=== PATIENT | male | born 1960 | race Caucasian/White ===

== ENCOUNTER 2022-01-25 05:55 | Day surgery (SDC) | payer OTHER ==
[2022-01-22 10:11] LABS: Absolute Lymphocytes (CBC) 2.2 K/uL (0.7-4.9); Hematocrit 42.1 % (39.6-49.0); Lymphocytes % 27.5 % (15.3-44.8); MPV 8.4 fL (7.6-11.3); RBC Red Blood Cell Count 5.11 M/uL (4.33-5.43)
[2022-01-22 10:15] LABS: Protime INR 0.96
[2022-01-22 10:19] LABS: Potassium 4.1 mmol/L (3.5-5.1)
--- NOTE | 2022-01-22 10:39 | RAD REPORT ---
EXAM DESCRIPTION: RAD - Chest Pa And Lat (2 Views) - 01/22/2022 9:59 am CLINICAL HISTORY: Pre Op COMPARISON: CHEST SINGLE VIEW dated 09/24/2013 FINDINGS: Lines: None. Lungs: No evidence of edema or pneumonia. Pleural: No significant pleural effusions or pneumothorax. Cardiac: The heart size is within normal limits. Bones: No acute fractures. Other: IMPRESSION: No acute cardiopulmonary disease.
--- NOTE | 2022-01-22 12:16 | EKG ---
Test Date: 2022-01-22 Test Time: 09:44:56 Transmission Rebuilder: JOSE MEASUREMENT RESULTS: Intervals: Rate: 68 PA: 168 QRSD: 104 QT: 402 QTc: 427 [place]: P: 33 PA: 168 QRS: 31 T: 35 INTERPRETIVE STATEMENTS: Normal sinus rhythm Normal ECG Compared to ECG 09/24/2013 05:25:47 Sinus bradycardia no longer present Electronically Signed On 01-22-22 12:16:10 CDT by Shamir Sampson
[2022-01-25] MEDS ORDERED: CEFAZOLIN 2 GM IN 0.9% NACL 2 GM/100 ML BAG ONE (06:07)
[2022-01-25] MEDS ORDERED: Ringers Lactate 0 ML IV ONE (06:07)
[2022-01-25] MEDS ORDERED: NA CHLORIDE 0.9% 1,000 ML ONE (06:23)
[2022-01-25] MEDS ORDERED: CELECOXIB 100 MG CAPSULE ONE (06:33)
[2022-01-25] MEDS ORDERED: ACETAMINOPHEN 500 MG TAB ONE (06:34)
[2022-01-25] MEDS ORDERED: dexAMETHasone 10 MG/ML VIAL ONE ×2 (06:36→07:32)
[2022-01-25] MEDS ORDERED: LIDOCAINE 2% MPF 5 ML VIAL ONE ×2 (06:36→07:32)
[2022-01-25] MEDS ORDERED: ROPLVACAINE HCL 0 ML ONE (06:37)
[2022-01-25] MEDS ORDERED: MIDAZOLAM HCL 2 MG/2 ML INJ ONE (06:38)
[2022-01-25] MEDS ORDERED: ROPLVACAINE HCL 40 ML ONE (07:07)
[2022-01-25] MEDS ORDERED: EPINEPHRINE/PF 1 MG/ML AMP ONE (07:12)
[2022-01-25] MEDS ORDERED: FENTANYL CITR 100 MCG/2 ML ONE (07:32)
[2022-01-25] MEDS ORDERED: propofoL 200 MG/20 ML VIAL IV ONE (07:32)
[2022-01-25] MEDS ORDERED: ROCURONIUM 50 MG/5 ML VIAL IV ONE (07:32)
[2022-01-25] MEDS ORDERED: KETOROLAC 30 MG/ML INJ ONE (07:32)
[2022-01-25] MEDS ORDERED: ONDANSETRON 4 MG/2 ML VIAL ONE (07:35)
--- NOTE | 2022-01-25 11:10 | P.BOP ---
Preoperative diagnosis: left shoulder rotator cuff tear, biceps tendinitis, impingement syndrome Postoperative diagnosis: same Primary procedure: left shoulder arthroscopic rotator cuff repair Secondary procedure: left shoulder arthroscopic biceps tenotomy Other procedure(s): left shoulder arthroscopic subacromial decompression Lay Out Carpenter: NONE,NONE Estimated blood loss: 10 cc Specimen: none Findings: see dictation Anesthesia: General Complications: None Implants: 5.5 mm Arthrex corkscrew, 2- 4.75 mm Arthrex swivelock Fluids & blood products: per anesthesia record Transferred to: Recovery Room Condition: Good
[2022-01-25] MEDS ORDERED: INSULIN -REGULAR HUMAN 50 UNIT/0.5 ML ML ONE (11:31)
--- NOTE | 2022-01-25 12:25 | RAD REPORT ---
EXAM DESCRIPTION: RAD - Shoulder 1 View - 01/25/2022 11:32 am FINDINGS: Single portable view left shoulder obtained following rotator cuff surgical repair. No dis location of the humeral head. Minimal degenerative change seen at the AC joint. No suspicious or unexpected soft tissue finding.
[2022-01-25] MEDS ORDERED: HYDROCODONE/APAP 7.5/325 MG TAB ONE (12:35)
[2022-01-25 13:51] VITALS: BP 93/58; TEMP 98; O2SAT 91
--- NOTE | 2022-01-27 23:10 | OP ---
Date of Procedure: 01/25/2022 Surgeon: Ino Collazo MD Preoperative Diagnoses: 1.Left shoulder rotator cuff tear. 2.Left shoulder bicipital tenosynovitis. 3.Impingement syndrome. Postoperative Diagnoses: 1.Left shoulder rotator cuff tear. 2.Left shoulder bicipital tenosynovitis. 3.Impingement syndrome. Procedures Performed: 1.Left shoulder arthroscopic rotator cuff repair. 2.Left shoulder arthroscopic biceps tenotomy. 3.Left shoulder arthroscopic subacromial decompression. Anesthesia: General endotracheal. Fluids: Per Anesthesia's record. Ebl: 10 cc. Complications: None. Implants: 1.One 5.5 mm Arthrex corkscrew. 2.Two 4.75 mm Arthrex SwiveLocks. Indication For Procedure: Jamie is a 61-year-old male who presented to the clinic with signs and sy mptoms and MRI findings consistent with a left shoulder rotator cuff tear. I discussed with the stephanie ent at length risks and benefits associated with operative and nonoperative treatment. He expressed understanding and elected to proceed with operative treatment. Description Of Procedure: After informed consent was obtained, the patient was identified in the pre operative holding area. The left upper extremity was marked. The patient was then brought to the [facility] where he underwent an interscalene block to his left upper extremity performed by Anesthesia. He was then brought back to the operating room, transferred to the operating table in the supine fashion , placed under general endotracheal anesthesia. He was then placed in the beach chair position with his extremities well padded. The left upper extremity was then prepped and draped in usual sterile f ashion. A time-out was initiated. The correct patient and procedure were confirmed and identified. The patient did receive his preoperative prophylactic antibiotics. The left shoulder was then injec josef with 30 cc of normal saline to distend the capsule. A stab incision was made posteriorly to crea te a posterior portal. Arthroscope was brought into the posterior portal position and diagnostic art hroscopy was performed. Under direct visualization, an anterior portal was created and anterior natalie gonsalo was placed. Diagnostic arthroscopy was performed. The patient was noted to have no significant loose bodies within the gutter, anterior and posterior labrums were stable to probe. There was some fraying of the biceps tendon anchor and superior labrum, and a biceps tenotomy was performed using la niscal biter and arthroscopic shaver. The patient was noted to have some chondromalacia changes over the humeral head as well as glenoid. Then, the patient was noted to have a full-thickness tear of t kike supraspinatus and a lateral portal was created using a spinal needle, and the obturator was then p laced from the lateral portal and was brought into the joint consist with a full-thickness tear. The undersurface of the rotator cuff tear was then debrided using the arthroscopic shaver and supraspina tus footprint where the tear was debrided using arthroscopic shaver to create a bleeding bony bed. T he arthroscope was then brought into subacromial space and a subacromial bursectomy was performed. T he rotator cuff tear was then identified again. The patient was noted to have significant spurring o f the undersurface of the acromion, making the subacromial space very tight, and the stab incision wa s made just lateral to the acromion and a 5.5 mm corkscrew was placed, which was double-loaded just l ateral to the articular surface. The sutures were then passed through the rotator cuff tear in an an terior to posterior fashion and horizontal mattress fashion and tied. There was good overall reducti on of the rotator cuff tear onto the supraspinatus footprint. The sutures were then placed in a renetta scross fashion to the lateral row. Two Arthrex SwiveLock anchors were placed for fixation of the rot ator cuff tear. Remaining sutures were then cut. Next, attention was taken to the subacromial decom pression. A radiofrequency ablator was then used to debride the undersurface of the acromion. An ar throscopic cathy was then used to perform an acromioplasty to remove and debride any undersurface spur ring of the undersurface of the acromion. After this was completed, the arthroscopic instruments wer e then removed without complication. The wounds were then debrided thoroughly with normal saline and subcutaneous tissue was approximated using a 2-0 Vicryl and skin was approximated using a 4-0 Monocr yl. Sterile dressings were placed. The patient was awakened, placed in a shoulder immobilizer, and transferred to PACU in stable condition. Postoperative Plan: The patient will follow the medium rotator cuff repair protocol at 4 weeks posto pCharmaine VARGAS/SYED Voice ID: [id number] Report ID: [id number]
== END 2022-01-25 12:55 | disposition home or self-care (01) ==
LOC: OR 05:55
PROVIDERS: ATTEND Orthopaedic Surgery Sports Medicine
PROC: 0RNK4ZZ Release Left Shoulder Joint, Percutaneous Endoscopic Approach (ICD-10-PCS; 2022-01-25)
PROC: 0LM24ZZ Reattachment of Left Shoulder Tendon, Percutaneous Endoscopic Approach (ICD-10-PCS; principal; 2022-01-25 08:00)
DX: S46.012A Strain of muscle(s) and tendon(s) of the rotator cuff of left shoulder, initial encounter (principal); M75.42 Impingement syndrome of left shoulder; M75.22 Bicipital tendinitis, left shoulder; M25.512 Pain in left shoulder; Z20.822 Contact with and (suspected) exposure to COVID-19
CPT/HCPCS: 93005; 85025; 80048; 36415; 85610; 82947 ×2; 85730; 71046; 73020; 29827; 29826; U0002; J2704; J0171; J1815; J2250; J3010; J1100 ×2; J2795; J0690; J7030; J2405; J7120